=== PATIENT | female | born 1940 | race Caucasian/White ===

== ENCOUNTER 2016-12-27 11:37 | Day surgery (SDC) | payer MEDICARE ==
[~2016-12-27] VITALS: Ht 144.8 cm; Wt 59.5 kg
[~2016-12-27 11:37] MED LIST: LIDOCAINE HCL/PF 2% 5 ML VIAL IM ONE; PHENYLEPHRINE HCL 10 MG/ML VIAL IVP ONE
[2016-12-27] MEDS ORDERED: SODIUM CHLORIDE 0.9% 1,000 ML IV ONE ×2 (11:47→12:00)
[2016-12-27] MEDS ORDERED: ATOR40TA28 PO (12:26)
[2016-12-27] MEDS ORDERED: INSLAN SQ (12:26)
[2016-12-27] MEDS ORDERED: SENN-92 PO (12:26)
[2016-12-27] MEDS ORDERED: METF500T4 PO (12:26)
[2016-12-27] MEDS ORDERED: ASPI-1093 PO (12:26)
[2016-12-27] MEDS ORDERED: OMEP20 PO (12:26)
[2016-12-27] MEDS ORDERED: LISI-661 PO (12:26)
[2016-12-27] MEDS ORDERED: PROM50TA3 PO (12:26)
[2016-12-27] MEDS ORDERED: DONE5TAB PO (12:26)
[2016-12-27] MEDS ORDERED: ACET-66 PO (12:26)
[2016-12-27] MEDS ORDERED: CALC-879 PO (12:26)
[2016-12-27] MEDS ORDERED: PSYL3.4P5 PO (12:26)
[2016-12-27] MEDS ORDERED: VITAD1000 PO (12:26)
[2016-12-27] MEDS ORDERED: LORA10TA7 PO (12:26)
[2016-12-27] MEDS ORDERED: INSU100V SQ (12:26)
[2016-12-27 12:57] LABS: GLUCOSE,POINT OF CARE 78 MG/DL (70-110)
== END 2016-12-27 14:45 | disposition home or self-care (01) ==
LOC: SURGERY 11:37
PROVIDERS: ATTEND Internal Medicine Gastroenterology
DX: K22.2 Esophageal obstruction (principal); K44.9 Diaphragmatic hernia without obstruction or gangrene; K29.70 Gastritis, unspecified, without bleeding
CPT/HCPCS: 43239; 43249; 82962; 88305; 88312; 88342; C1769; J2370; J3490; J7030